=== PATIENT | male | born 1990 | race Caucasian/White ===

== ENCOUNTER 2018-04-24 08:18 | Emergency (ER) | payer BC ==
[2018-04-24] MEDS ORDERED: ONDANSETRON HCL INJ/PF 4 MG/2 ML SDV IV ONE ×2 (08:31→10:16)
[2018-04-24] MEDS ORDERED: KETOROLAC TROMETHAMINE INJ/PF 30 MG/1 ML SDV IV ONE (08:31)
[2018-04-24] MEDS ORDERED: NORMAL SALINE 1000 ML 1,000 ML IV ONE ×2 (09:08→10:17)
--- NOTE | 2018-04-24 09:15 | ER Document Report ---
ED Medical Screen (RME) - General Chief Complaint: Flank Pain Stated Complaint: BACK PAIN Time Seen by Provider: 04/24/18 09:07 Mode of Arrival: Ambulatory Information source: Patient, Relative Notes: 28-year-old male presents with complaint of right-sided flank pain, nausea that started this morning. I have greeted and performed a rapid initial assessment of this patient. A comprehensive ED assessment and evaluation of the patient, analysis of test results and completion of medical decision making process we will be contacted by additional ED providers. PHYSICAL EXAMINATION: GENERAL: Appears to be in pain HEAD: Atraumatic, normocephalic. NECK: Normal range of motion LUNGS: No respiratory distress Musculoskeletal: Normal range of motion NEUROLOGICAL: Normal speech, normal gait. TRAVEL OUTSIDE OF THE [place] IN LAST 30 DAYS: No - HPI Onset: This morning Onset/Duration: Sudden Quality of pain: Achy Severity: Moderate Associated Symptoms: Nausea Exacerbated by: Movement Relieved by: Denies Similar symptoms previously: No Recently seen / treated by doctor: No - Related Data Smoking: Non-smoker Frequency of alcohol use: None Drug Abuse: None Allergies/Adverse Reactions: No Known Allergies Allergy (Verified 04/24/18 08:23) Physical Exam - Vital signs Vitals: Temp Pulse Resp BP Pulse Ox 97.4 F 69 20 122/70 100 04/24/18 08:24 04/24/18 08:24 04/24/18 08:24 04/24/18 08:24 04/24/18 08:24 Course - Vital Signs Vital signs: Temp Pulse Resp BP Pulse Ox 97.4 F 69 20 122/70 100 04/24/18 08:24 04/24/18 08:24 04/24/18 08:24 04/24/18 08:24 04/24/18 08:24
[2018-04-24 09:16] LABS: APPEARANCE,URINE CLOUDY; BILIRUBIN,URINE NEGATIVE (NEGATIVE); COLOR,URINE YELLOW; GLUCOSE, URINE NEGATIVE (NEGATIVE); KETONES,URINE NEGATIVE (NEGATIVE); LEUKOCYTE ESTERASE,URINE NEGATIVE (NEGATIVE); NITRITE,URINE NEGATIVE (NEGATIVE); PROTEIN,URINE NEGATIVE (NEGATIVE); UROBILINOGEN,URINE NEGATIVE mg/dL (<2.0)
[2018-04-24 09:28] LABS: ABSOLUTE BASOPHILS # (AUTO) 0.1 10^3/uL (0.0-0.2); ABSOLUTE EOSINOPHILS # (AUTO) 0.1 10^3/uL (0.0-0.6); ABSOLUTE LYMPHOCYTES (AUTO) 2.1 10^3/uL (0.5-4.7); ABSOLUTE MONOCYTES (AUTO) 0.6 10^3/uL (0.1-1.4); ABSOLUTE NEUT (AUTO) 3.8 10^3/uL (1.7-8.2); BASOPHILS % (AUTO) 0.8 % (0-2); EOSINOPHILS % (AUTO) 1.3 % (0-6); HEMATOCRIT 43.1 % (37.9-51.0); HEMOGLOBIN 14.5 g/dL (13.5-17.0); LYMPHOCYTES % (AUTO) 31.7 % (13-45); MEAN CORPUSCULAR HEMOGLOBIN 26.4 pg (27.0-33.4); MEAN CORPUSCULAR HGB CONC 33.5 g/dL (32.0-36.0); MEAN CORPUSCULAR VOLUME 79 fl (80-97); MONOCYTES % (AUTO) 9.1 % (3-13); PLATELET COUNT 252 10^3/uL (150-450); RED BLOOD COUNT 5.49 10^6/uL (4.35-5.55); RED CELL DISTRIBUTION WIDTH 13.6 % (11.5-14.0); SEGMENTED NEUTROPHILS % (AUTO) 57.1 % (42-78); TOTAL CELLS COUNTED % (AUTO) 100 %; WHITE BLOOD COUNT 6.6 10^3/uL (4.0-10.5)
[2018-04-24 09:49] LABS: ALANINE AMINOTRANSFERASE 30 U/L (21-72); ALBUMIN 4.5 g/dL (3.5-5.0); ALKALINE PHOSPHATASE 70 U/L (38-126); ANION GAP 10 (5-19); ASPARTATE AMINO TRANSFERASE 30 U/L (17-59); BILIRUBIN,DIRECT 0.3 mg/dL (0.0-0.4); BILIRUBIN,TOTAL 0.7 mg/dL (0.2-1.3); BLOOD UREA NITROGEN 15 mg/dL (7-20); CALCIUM 9.4 mg/dL (8.4-10.2); CARBON DIOXIDE 24 mmol/L (22-30); CHLORIDE 106 mmol/L (98-107); GLUCOSE 101 mg/dL (75-110); LIPASE 68.9 U/L (23-300); POTASSIUM 4.1 mmol/L (3.6-5.0); SODIUM 140.3 mmol/L (137-145); TOTAL PROTEIN 7.7 g/dL (6.3-8.2)
[2018-04-24] MEDS ORDERED: MORPHINE SULFATE 10 MG/ML INJ IV ONE ×2 (10:16→11:33)
--- NOTE | 2018-04-24 10:17 | ER Document Report ---
ED GI/ - General Mode of Arrival: Ambulatory Information source: Patient TRAVEL OUTSIDE OF THE [place] IN LAST 30 DAYS: No <LILLIANA MOYA - Last Filed: 04/24/18 12:44> <RAZA ALVAREZ - Last Filed: 04/24/18 13:17> - General Chief Complaint: Flank Pain Stated Complaint: BACK PAIN Time Seen by Provider: 04/24/18 09:07 Notes: 28-year-old male who presents to the emergency department today with complaints of right flank pain. Patient states he got off from work at 0500 this morning and went to lie down at about 0530 to go to sleep. Patient states about an hour after that he woke up because he was not able to get comfortable because of this right flank pain. Patient states the pain did not radiate into his testicle but did radiate into his right lower quadrant. Patient states that he was unable to get comfortable when waking up and he was "stumbling around" which he thinks was related to his ambien. (LILLIANA MOYA) - Related Data Allergies/Adverse Reactions: No Known Allergies Allergy (Verified 04/24/18 08:23) Past Medical History - General Information source: Patient, Relative - Social History Smoking Status: Never Smoker Cigarette use (# per day): No Chew tobacco use (# tins/day): No Frequency of alcohol use: None Drug Abuse: None Lives with: Family Family History: Reviewed & Not Pertinent Patient has suicidal ideation: No Patient has homicidal ideation: No Neurological Medical History: Reports: Hx Migraine Past Surgical History: Reports: Hx Orthopedic Surgery <LILLIANA MOYA - Last Filed: 04/24/18 12:44> Review of Systems - Review of Systems Constitutional: No symptoms reported EENT: No symptoms reported Cardiovascular: No symptoms reported Respiratory: No symptoms reported Gastrointestinal: No symptoms reported Genitourinary: See HPI, Flank pain - right Male Genitourinary: No symptoms reported Musculoskeletal: No symptoms reported Skin: No symptoms reported Hematologic/Lymphatic: No symptoms reported Neurological/Psychological: No symptoms reported -: Yes All other systems reviewed and negative <LILLIANA MOYA - Last Filed: 04/24/18 12:44> Physical Exam <LILLIANA MOYA - Last Filed: 04/24/18 12:44> <RAZA ALVAREZ - Last Filed: 04/24/18 13:17> - Vital signs Vitals: Temp Pulse Resp BP Pulse Ox 97.4 F 69 20 122/70 100 04/24/18 08:24 04/24/18 08:24 04/24/18 08:24 04/24/18 08:24 04/24/18 08:24 - Notes Notes: Physical Exam: General: Alert, appears uncomfortable. HEENT: Normocephalic. Atraumatic. PERRL. Extraocular movements intact. Oropharynx clear. Neck: Supple. Non-tender. Respiratory: No respiratory distress. Clear and equal breath sounds bilaterally. Cardiovascular: Regular rate and rhythm. Abdominal: RLQ tenderness to palpation. No distension. Normal Bowel Sounds. Back: Non-tender. No CVA ttp. No deformity or step off. Extremities: Moves all four extremities. Upper extremities: Normal inspection. Normal ROM. Lower extremities: Normal inspection. No edema. Normal ROM. Neurological: Normal cognition. AAOx4. Normal speech. Psychological: Normal affect. Normal Mood. Skin: Warm. Dry. Normal color. (LILLIANA MOYA) Course - Laboratory Result Diagrams: 04/24/18 09:00 04/24/18 09:00 <LILLIANA MOYA - Last Filed: 04/24/18 12:44> - Laboratory Result Diagrams: 04/24/18 09:00 04/24/18 09:00 <RAZA ALVAREZ - Last Filed: 04/24/18 13:17> - Vital Signs Vital signs: Temp Pulse Resp BP Pulse Ox 97.4 F 69 20 122/70 100 04/24/18 08:24 04/24/18 08:24 04/24/18 08:24 04/24/18 08:24 04/24/18 08:24 - Laboratory Laboratory results interpreted by me: 04/24/18 04/24/18 08:20 09:00 MCV 79 L MCH 26.4 L Urine Blood LARGE H Discharge <LILLIANA MOYA - Last Filed: 04/24/18 12:44> <RAZA ALVAREZ - Last Filed: 04/24/18 13:17> - Discharge Clinical Impression: Obstruction of right ureteropelvic junction (UPJ) due to stone, Renal colic on right side Condition: Stable Disposition: HOME, SELF-CARE Additional Instructions: Kidney Stone: You are passing or have passed a kidney stone. These stones are usually due to increased calcium or uric acid concentrations in your urine. Stones within the kidney itself are not painful. The pain occurs as the stone leaves the kidney to pass down the long tube, called the ureter, leading to the bladder. If the stone is small, it will usually pass by itself. Most patients can pass the stone at home. You will usually receive medications for pain, nausea or vomiting, and sometimes a medication to assist in passing the kidney stone. However, if the pain is very severe or if vomiting prevents you from taking oral pain medications, you may need to return for further treatment. Drink three or four quarts of fluids per day. You will be given pain medication (if needed) and urine strainers. Strain all your urine to see if the stone passes. If your doctor has asked you to bring the stone in for analysis, return with the stone once it has passed. Return if pain or vomiting become severe, if you develop a high fever, if you are unable to pass your urine, or if other unusual symptoms occur. Take the medications as prescribed for pain and nausea. Start the Flomax tomorrow. Drink plenty of fluids throughout the day in the evening. Strain your urine. Follow-up with your primary care provider or [facility] urology this week if not improving. RETURN TO THE EMERGENCY ROOM IF ANY NEW OR WORSENING SYMPTOMS. Prescriptions: Ondansetron [Zofran Odt 4 mg Tablet] 1 - 2 tab PO Q4H #10 tab.rapdis Oxycodone HCl/Acetaminophen [Percocet 5-325 mg Tablet] 1 - 2 tab PO ASDIR PRN # 15 tablet PRN Reason: Tamsulosin HCl [Flomax 0.4 mg Cap.sr] 0.4 mg PO DAILY #7 cap.sr.24h Scribe Attestation: 04/24/18 11:34 I personally performed the services described in the documentation, reviewed and edited the documentation which was dictated to the scribe in my presence, and it accurately records my words and actions. (RAZA ALVAREZ) Scribe Documentation - Scribe Written by Albertaibe:: Lauro Day, 04/24/2018 1300 acting as scribe for :: Elida <LILLIANA MOYA - Last Filed: 04/24/18 12:44>
--- NOTE | 2018-04-24 12:32 | RADIOLOGY REPORT (SQ) ---
EXAM DESCRIPTION: CT LTD RENAL STONE PROTOCOL ON COMPLETED DATE/TIME: 04/24/2018 11:57 am REASON FOR STUDY: Right renal colic with hematuria COMPARISON: None. TECHNIQUE: CT scan of the abdomen and pelvis performed without intravenous or oral contrast. Images reviewed with lung, soft tissue, and bone windows. Reconstructed coronal and sagittal MPR images revi ewed. All images stored on PACS. All CT scanners at this facility use dose modulation, iterative reconstruction, and/or weight based d osing when appropriate to reduce radiation dose to as low as reasonably achievable (ALARA). [facility]: Dose Right [facility]: CareDose [facility]: Dose Right [facility]: Teradose 4D [facility]: Smart HelloFax RADIATION DOSE: CT Rad equipment meets quality standard of care and radiation dose reduction techniq ues were employed. CTDIvol: 5.6 mGy. DLP: 314 mGy-cm.mGy. LIMITATIONS: None. FINDINGS: LOWER CHEST: No significant findings. No nodules or infiltrates. NON-CONTRASTED LIVER, SPLEEN, ADRENALS: Evaluation limited by lack of IV contrast. No identified sign ificant masses. PANCREAS: No masses. No peripancreatic inflammatory changes. GALLBLADDER: No identified stones by CT criteria. No inflammatory changes to suggest cholecystitis. RIGHT KIDNEY AND URETER: No suspicious masses. Assessment limited by lack of IV contrast. Renal tierney culi measuring up to about 3 mm. There are several calcifications along the expected course of the r ight ureter, however a definitive ureteral stone not identified. There may be a 2 mm stone in the UP J on image 42. Mild hydronephrosis. LEFT KIDNEY AND URETER: No suspicious masses. Assessment limited by lack of IV contrast. Renal calc jana measuring up to about 2 mm. No hydronephrosis or hydroureter. AORTA AND RETROPERITONEUM: No aneurysm. No retroperitoneal masses or adenopathy. BOWEL AND PERITONEAL CAVITY: No obvious masses or inflammatory changes. No free fluid. APPENDIX: Normal. PELVIS, BLADDER, AND ABDOMINAL WALL:No abnormal masses. No free fluid. Bladder normal. BONES: No significant findings. OTHER: No other significant finding. IMPRESSION: 2 mm stone right UPJ. Mild hydronephrosis. COMMENT: Quality ID # [id number]: Final reports with documentation of one or more dose reduction techniques (e.g., Automated exposure control, adjustment of the mA and/or kV according to patient size, use of iterative reconstruction technique) TECHNICAL DOCUMENTATION: JOB ID: [id number] [facility] [employer] [facility] [employer]- All Rights Reserved Reading location - IP/workstation name: DOCUMENT CONTROL [email or web address]
[2018-04-24] MEDS ORDERED: TAMSULOSIN HCL 0.4 MG CAP.SR.24H PO ONE (12:58)
[2018-04-24 13:40] VITALS: BP 125/75
== END 2018-04-24 13:29 | disposition home or self-care (01) ==
LOC: ER 08:18
DX: N13.2 Hydronephrosis with renal and ureteral calculous obstruction (principal)
CPT/HCPCS: 96376; 99284; 96361; 96374; 96375; 36415; 83690; 85025; 80053; 81001; 76380; J1885; J2270; J2405